=== PATIENT | female | born 1975 | race Caucasian/White ===

== ENCOUNTER 2021-01-31 18:35 | Emergency (ER) | payer BC, OTHER ==
[2021-01-31] MEDS ORDERED: Sodium Chloride 0.9% 1,000 ML IV SCH (19:00)
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
[2021-01-31] MEDS ORDERED: LORazepam 0.5 MG Tab PO ONE ×2 (20:04→20:05)
[2021-01-31] MEDS ORDERED: LORazepam 0.5 MG Tab ONE (20:13)
[2021-01-31] MEDS ORDERED: Labetalol 100 MG/20 ML MDV IVPUSH ONE ×2 (20:37→20:38)
[2021-01-31] MEDS ORDERED: Labetalol 100 MG/20 ML MDV ONE (20:46)
--- NOTE | 2021-02-04 06:38 | CT ---
DATE OF SERVICE: 02/01/2021 CLINICAL DATA: Tingling, numbness. UNENHANCED BRAIN CT: Comparison is made to a prior exam dated 11/15/2012. No masses or mass effect. No intracranial hemorrhage. No evidence of acute or subacute infarct. No osseous abnormalities. IMPRESSION: No acute intracranial abnormalities. [id number] [id number]
== END 2021-01-31 21:10 | disposition home or self-care (01) ==
LOC: LB.ED 18:35
DX: F41.9 Anxiety disorder, unspecified (principal); I16.0 Hypertensive urgency
CPT/HCPCS: 36415; 70450; 80053; 84484; 85025; 93005; 96374; 99284; A9270; J3490; J7030